=== PATIENT | male | born 1980 | race Caucasian/White ===

== ENCOUNTER 2020-01-08 12:26 | Inpatient (IN) ==
[2020-01-08] MEDS ORDERED: *HR* HYDROmorphone (PF) 1 MG/ML SYRINGE IVP ONE (13:04)
[2020-01-08] MEDS ORDERED: Ondansetron 4 MG/2 ML VIAL IVP ONE (13:04)
[2020-01-08 13:29] LABS: Basophils # 0.1 K/mcL (0.0-0.2); Basophils % 0.5 %; Eosinophils # 0.3 K/mcL (0.0-0.6); Eosinophils % 2.5 %; Hematocrit 44.9 % (37.5-50.1); Hemoglobin 14.3 g/dL (12.9-16.9); Immature Granulocytes % 0.8 % (0-4); Lymphocytes # 1.7 K/mcL (0.6-4.6); Lymphocytes % 13.8 %; Mean Corpuscular HGB Conc 31.8 g/dL (31.6-35.5); Mean Corpuscular Hemoglobin 29.3 pg (28.0-33.3); Mean Platelet Volume 9.8 fL (9.4-12.4); Monocytes # 0.4 K/mcL (0.0-1.3); Monocytes % 3.7 %; Neutrophils # 9.5 K/mcL (1.6-8.9); Platelet Count 200 K/mcL (140-400); Red Blood Count 4.88 M/mcL (4.19-5.50); Red Cell Distribution Width 13.3 % (11.5-14.5); Segmented Neutrophils % 78.7 %
[2020-01-08 13:45] LABS: Bilirubin,Urine Negative (Negative); Blood,Urine Negative (Negative); Clarity,Urine Clear (Clear); Color,Urine Yellow (Yellow); Glucose,Urine (UA) Normal (Normal); Ketones,Urine Negative (Negative); Leukocyte Esterase,Urine Negative (Negative); Mucus,Urine Few per lpf (None-Few); Nitrite,Urine Negative (Negative); PH,Urine 7.5 pH Units (5.0-8.0); Protein,Urine 30 mg/dL (Neg-Trace); RBC,Urine 0-3 per hpf (0-3); Specific Gravity,Urine 1.029 (1.010-1.025); Squamous Epithelial Cell,Urine Few per hpf (None-Few); WBC,Urine 0-3 per hpf (0-3)
[2020-01-08 13:48] LABS: Alanine Aminotransferase 14 Units/L (7-52); Albumin 4.2 g/dL (3.5-5.7); Albumin/Globulin Ratio 1.6 (1.1-2.2); Alkaline Phosphatase 55 Units/L (34-104); Aspartate Amino Transferase 14 Units/L (13-39); BUN/Creatinine Ratio 15 (6-26); Bilirubin,Total 0.4 mg/dL (0.3-1.0); Blood Urea Nitrogen 11 mg/dL (6-20); Calcium 8.9 mg/dL (8.6-10.3); Carbon Dioxide 28 mEq/L (23-29); Chloride 103 mEq/L (98-107); Globulin 2.6 g/dL (2.4-3.5); Glucose 100 mg/dL (70-105); Lipase 8 Units/L (11-82); Osmolality,Calculated 285 (280-300); Potassium 4.2 mEq/L (3.5-5.1); Sodium 138 mEq/L (136-145); Total Protein 6.8 g/dL (6.4-8.9); eGFR For African Americans > 60 (> 60); eGFR For Non-African Americans > 60 (> 60)
[2020-01-08] MEDS ORDERED: Tetracaine/Benzocaine/Butamben 1 SPRAY AEROSOL MM ONE (14:07)
[2020-01-08] MEDS ORDERED: Naloxone 0.4 MG/ML INJ IVP PRN (15:56)
[2020-01-08] MEDS ORDERED: Ondansetron 4 MG/2 ML VIAL IVP PRN (16:51)
[2020-01-08] MEDS: *HR* Heparin 5,000 UNIT/ML VIAL SQ SCH (18:01)
[2020-01-08] MEDS: Ketorolac 30 MG/ML VIAL IVP PRN (18:01)
[2020-01-08] MEDS ORDERED: 0.9 % Sodium Chloride 1,000 ML IVC SCH (19:45)
[2020-01-09] MEDS: Ketorolac 30 MG/ML VIAL IVP PRN (00:23)
[2020-01-09] MEDS: *HR* Heparin 5,000 UNIT/ML VIAL SQ SCH (06:18)
[2020-01-09 07:13] LABS: Basophils # 0.1 K/mcL (0.0-0.2); Basophils % 0.7 %; Eosinophils # 0.4 K/mcL (0.0-0.6); Eosinophils % 4.1 %; Hematocrit 41.9 % (37.5-50.1); Hemoglobin 13.3 g/dL (12.9-16.9); Immature Granulocytes % 0.9 % (0-4); Lymphocytes # 1.5 K/mcL (0.6-4.6); Lymphocytes % 17.9 %; Mean Corpuscular HGB Conc 31.7 g/dL (31.6-35.5); Mean Corpuscular Hemoglobin 29.6 pg (28.0-33.3); Mean Corpuscular Volume 93.1 fL (83.0-100.0); Mean Platelet Volume 9.9 fL (9.4-12.4); Monocytes # 0.4 K/mcL (0.0-1.3); Monocytes % 4.5 %; Neutrophils # 6.2 K/mcL (1.6-8.9); Platelet Count 179 K/mcL (140-400); Red Cell Distribution Width 13.4 % (11.5-14.5); Segmented Neutrophils % 71.9 %; White Blood Count 8.6 K/mcL (4.3-11.1)
[2020-01-09 07:38] LABS: BUN/Creatinine Ratio 17 (6-26); Blood Urea Nitrogen 15 mg/dL (6-20); Calcium 8.6 mg/dL (8.6-10.3); Carbon Dioxide 28 mEq/L (23-29); Chloride 104 mEq/L (98-107); Glucose 124 mg/dL (70-105); Osmolality,Calculated 288 (280-300); Potassium 4.3 mEq/L (3.5-5.1); Sodium 138 mEq/L (136-145); eGFR For African Americans > 60 (> 60); eGFR For Non-African Americans > 60 (> 60)
[2020-01-09] MEDS: Ringers Solution, Lactated 1,000 ML IVC SCH ×3 (08:43→19:46)
[2020-01-09] MEDS ORDERED: *HR* Dextrose 50 % in Water (Vial) 50 ML VIAL IVP PRN (12:35)
[2020-01-09] MEDS ORDERED: D5% in Water 1,000 ML IVC PRN (12:35)
[2020-01-09] MEDS ORDERED: Dextrose Gel 15 GM/37.5 ML TUBE PO PRN ×2 (12:35)
[2020-01-09] MEDS: Insulin LISPRO 300 UNITS/3 ML VIAL SQ SCH ×3 (13:13→16:25)
[2020-01-10] MEDS: Ringers Solution, Lactated 1,000 ML IVC SCH (04:25)
[2020-01-10] MEDS: Insulin LISPRO 300 UNITS/3 ML VIAL SQ SCH ×5 (04:27→21:36)
[2020-01-10] MEDS ORDERED: Ringers Solution, Lactated 1,000 ML IVC SCH (08:30)
[2020-01-10] MEDS ORDERED: *HR* Propofol 200 MG/20 ML VIAL IVP ONE (11:02)
[2020-01-10] MEDS ORDERED: Lidocaine -MPF 2% 2 ML VIAL ONE (11:03)
[2020-01-11 06:37] LABS: BUN/Creatinine Ratio 11 (6-26); Blood Urea Nitrogen 9 mg/dL (6-20); Calcium 8.9 mg/dL (8.6-10.3); Carbon Dioxide 28 mEq/L (23-29); Chloride 105 mEq/L (98-107); Glucose 111 mg/dL (70-105); Osmolality,Calculated 285 (280-300); Sodium 138 mEq/L (136-145); eGFR For African Americans > 60 (> 60); eGFR For Non-African Americans > 60 (> 60)
[2020-01-11 07:13] VITALS: BP 108/63
[2020-01-11] MEDS: Insulin LISPRO 300 UNITS/3 ML VIAL SQ SCH (07:18)
[2020-01-11 10:19] LABS: Hematocrit 43.4 % (37.5-50.1); Hemoglobin 13.4 g/dL (12.9-16.9); Mean Corpuscular HGB Conc 30.9 g/dL (31.6-35.5); Mean Corpuscular Hemoglobin 28.9 pg (28.0-33.3); Mean Corpuscular Volume 93.7 fL (83.0-100.0); Platelet Count 121 K/mcL (140-400); Red Blood Count 4.63 M/mcL (4.19-5.50); White Blood Count 6.7 K/mcL (4.3-11.1)
[2020-01-11 10:21] LABS: Mean Platelet Volume 10.8 fL (9.4-12.4)
== END 2020-01-11 10:15 | disposition home or self-care (01) | DRG 389 ==
LOC: 3ANU 12:26 → EMEROOARM 12:26 → 3ANU 15:45
PROVIDERS: ADMIT Internal Medicine; ATTEND Internal Medicine
PROC: ENDOCBX (2020-01-10 09:20)